=== PATIENT | female | born 1975 | race Caucasian/White ===

== ENCOUNTER 2018-09-11 21:30 | Emergency (ER) | payer OTHER ==
[2018-09-11 21:51] VITALS: BP 149/95
== END 2018-09-11 22:20 | disposition left against medical advice (07) ==
LOC: ED 21:30
DX: T18.9XXA Foreign body of alimentary tract, part unspecified, initial encounter (principal); X58.XXXA Exposure to other specified factors, initial encounter; R05 Cough; R06.00 Dyspnea, unspecified; Z53.21 Procedure and treatment not carried out due to patient leaving prior to being seen by health care provider